=== PATIENT | male | born 1950 | race Caucasian/White ===

== ENCOUNTER 2018-07-08 03:56 | Inpatient (IN) ==
[2018-07-08] MEDS ORDERED: methylPREDNISolone 125 MG/2 ML VIAL IVP ONE (04:12)
[2018-07-08] MEDS ORDERED: Ipratropium/Albuterol Neb 3 ML IH ONE (04:12)
[2018-07-08] MEDS: Ipratropium/Albuterol Neb 3 ML ONE ×3 (04:13→04:15)
--- NOTE | 2018-07-08 04:32 | Emergency Department Note ---
Disposition Clinical Impression: Acute exacerbation of chronic obstructive airways disease Disposition: Admitted As Inpatient Condition: Fair Forms: ED Satisfaction Letter Time of Disposition: 07:32 SOB HPI - General Chief Complaint: ED Shortness of Breath/Dyspnea Stated Complaint: Ailyn Time Seen by Provider: 07/08/18 04:12 Source: patient, EMS Limitations: no limitations Nursing Notes Reviewed: Yes Vital Signs Reviewed: Yes - History of Present Illness 68-year-old male presents from home via EMS for evaluation of breath. Onset late this morning and progressive. On EMS arrival to the patient's house, he was saturating in the low 80s on his baseline 3 L nasal cannula. Improved after albuterol nebs and 4 L nasal cannula to the low 90s. Patient has a history of COPD on 3 L nasal cannula continuous. History of anxiety. He states the shortness of breath began abruptly late this morning. His been progressive since. ROS: Positive: As above Negative: Traci, chills, nausea, vomiting, cough, chest pains, palpitations, diaphoresis, abdominal pain, change in bowel or bladder habits. - Related Data Allergies Allergy/AdvReac Type Severity Reaction Status Date / Time furosemide [From Lasix] Allergy See Verified 07/08/18 04:05 Comments All systems ED: reviewed and negative except as stated. Review of Systems: As Per HPI Past Medical History - Past Medical History Medical history: Reports: COPD - Social History Smoking Status: Current every day smoker Smokeless Tobacco Status: No Alcohol use: Reports: none Drug use: Reports: none Physical Exam Vital Signs Reviewed General: Patient is alert, oriented, anxious appearing, one word conversational dyspnea. In respiratory distress with accessory muscle usage breathing through pursed lips. Head: atraumatic, normocephalic Eye: normal appearance, PERRL, EOMI, no scleral icterus, no conjunctival injection ENT: mucous membranes moist, normal external ear exam Neck: normal inspection, trachea midline, full ROM Chest: normal inspection, symmetric chest rise Respiratory: Poor respiratory effort. Bilateral breath sounds are equal with global wheeze. Cardiovascular: Regular rate and rhythm. No clicks, rubs, gallops, or murmors. Normal heart sounds. Abdomen: Bowel sounds present normoactive. Abdomen is soft, nondistended, and nontender. No guarding or rebound. Musculoskeletal: Spontaneously moving all extremities. Skin: warm, dry, intact. Neuro: GCS 15. No focal neurologic deficits observed. Psych: Patient's affect is appropriate for situation. - General Limitations: no limitations General appearance: alert, in no apparent distress Course Course Narrative: Patient placed on BiPAP with nebulizers. Clinical concern for acute exacerbation of COPD versus bronchitis versus pneumonia versus cardiac etiology. EKG dated 07/08/2018 at 04:0 interpreted as sinus tachycardia with a rate of 102. MN 144, QRS 87, QTC 4:30. Normal axis. Nonspecific ST-T changes. Rare PVC. No previous EKG for comparison. Chest x-ray concerning for emphysema; confirming acute exacerbation of COPD. Serum hematology and serum chemistries are unremarkable. Patient is symptomatically improving on BiPAP. DuoNeb was provided. IV steroids provided. I discussed the above with the admitting hospitalist, Dr. Issa, who agrees to the patient for continued evaluation monitoring for acute exacerbation of COPD. Chest X-Ray 07/08/18 04:12 IMPRESSION: Emphysema with no acute airspace disease. D/ / Elliot Dumas MD / Elliot Dumas MD Interpreting Provider: Elliot Dumas MD Vital Signs Temperature 98.0 F 07/08/18 03:58 Pulse Rate 106 07/08/18 03:58 Respiratory Rate 26 07/08/18 03:58 Blood Pressure 200/105 07/08/18 03:58 O2 Sat by Pulse Oximetry 94 07/08/18 03:58 Temperature 98.0 F 07/08/18 03:58 Pulse Rate 89 07/08/18 07:22 Respiratory Rate 22 07/08/18 06:26 Blood Pressure 138/82 07/08/18 07:22 O2 Sat by Pulse Oximetry 99 07/08/18 07:22 Oxygen Delivery Oxygen Delivery Bipap Shortness of Breath/Dyspnea - Lab Data Result diagrams: 07/08/18 05:03 07/08/18 05:03 Lab Results 07/08/18 07/08/18 07/08/18 Range/Units 05:03 05:03 05:03 WBC 11.6 H (4.3-11.1) K/mcL RBC 4.62 (4.19-5.50) M/mcL Hgb 13.3 (12.9-16.9) g/dL Hct 41.5 (37.5-50.1) % MCV 89.8 (83.0-100.0) fL MCH 28.8 (28.0-33.3) pg MCHC 32.0 (31.6-35.5) g/dL RDW 14.2 (11.5-14.5) % Plt Count 380 (140-400) K/mcL MPV 8.4 L (9.4-12.4) fL Immature Gran % 0.3 (0-4) % Seg Neutrophils % 47.0 % Lymphocytes % 33.2 % Monocytes % 13.2 % Eosinophils % 5.3 % Basophils % 1.0 % Neutrophils # 5.5 (1.6-8.9) K/mcL Lymphocytes # 3.9 (0.6-4.6) K/mcL Monocytes # 1.5 H (0.0-1.3) K/mcL Eosinophils # 0.6 (0.0-0.6) K/mcL Basophils # 0.1 (0.0-0.2) K/mcL Sodium 137 (136-145) mEq/L Potassium 3.9 (3.5-5.1) mEq/L Chloride 101 (98-107) mEq/L Carbon Dioxide 29 (23-29) mEq/L BUN 15 (8-23) mg/dL Creatinine 0.74 (0.70-1.30) mg/dL Est GFR ( Amer) > 60 (> 60) Est GFR (Non-Af Amer) > 60 (> 60) BUN/Creatinine Ratio 20 (6-26) Glucose 118 H (70-105) mg/dL Calculated Osmolality 286 (280-300) Lactic Acid 0.8 (0.5-2.2) mmol/L Calcium 9.9 (8.6-10.3) mg/dL Troponin I < 0.03 (< 0.04) ng/mL B-Natriuretic Peptide (Less than 100) pg/mL 07/08/18 Range/Units 05:03 WBC (4.3-11.1) K/mcL RBC (4.19-5.50) M/mcL Hgb (12.9-16.9) g/dL Hct (37.5-50.1) % MCV (83.0-100.0) fL MCH (28.0-33.3) pg MCHC (31.6-35.5) g/dL RDW (11.5-14.5) % Plt Count (140-400) K/mcL MPV (9.4-12.4) fL Immature Gran % (0-4) % Seg Neutrophils % % Lymphocytes % % Monocytes % % Eosinophils % % Basophils % % Neutrophils # (1.6-8.9) K/mcL Lymphocytes # (0.6-4.6) K/mcL Monocytes # (0.0-1.3) K/mcL Eosinophils # (0.0-0.6) K/mcL Basophils # (0.0-0.2) K/mcL Sodium (136-145) mEq/L Potassium (3.5-5.1) mEq/L Chloride (98-107) mEq/L Carbon Dioxide (23-29) mEq/L BUN (8-23) mg/dL Creatinine (0.70-1.30) mg/dL Est GFR ( Amer) (> 60) Est GFR (Non-Af Amer) (> 60) BUN/Creatinine Ratio (6-26) Glucose (70-105) mg/dL Calculated Osmolality (280-300) Lactic Acid (0.5-2.2) mmol/L Calcium (8.6-10.3) mg/dL Troponin I (< 0.04) ng/mL B-Natriuretic Peptide 22 (Less than 100) pg/mL
[2018-07-08] MEDS ORDERED: Acetaminophen 325 MG TABLET PO ONE (04:33)
[2018-07-08 05:24] LABS: Basophils # 0.1 K/mcL (0.0-0.2); Eosinophils # 0.6 K/mcL (0.0-0.6); Eosinophils % 5.3 %; Hematocrit 41.5 % (37.5-50.1); Hemoglobin 13.3 g/dL (12.9-16.9); Immature Granulocytes % 0.3 % (0-4); Lymphocytes # 3.9 K/mcL (0.6-4.6); Lymphocytes % 33.2 %; Mean Corpuscular Hemoglobin 28.8 pg (28.0-33.3); Mean Corpuscular Volume 89.8 fL (83.0-100.0); Mean Platelet Volume 8.4 fL (9.4-12.4); Monocytes # 1.5 K/mcL (0.0-1.3); Monocytes % 13.2 %; Neutrophils # 5.5 K/mcL (1.6-8.9); Platelet Count 380 K/mcL (140-400); Red Blood Count 4.62 M/mcL (4.19-5.50); Red Cell Distribution Width 14.2 % (11.5-14.5)
[2018-07-08 05:44] LABS: BUN/Creatinine Ratio 20 (6-26); Blood Urea Nitrogen 15 mg/dL (8-23); Calcium 9.9 mg/dL (8.6-10.3); Carbon Dioxide 29 mEq/L (23-29); Chloride 101 mEq/L (98-107); Glucose 118 mg/dL (70-105); Osmolality,Calculated 286 (280-300); Potassium 3.9 mEq/L (3.5-5.1); Sodium 137 mEq/L (136-145); eGFR For Non-African Americans > 60 (> 60)
[2018-07-08 05:45] LABS: Troponin I < 0.03 ng/mL (< 0.04)
--- NOTE | 2018-07-08 08:08 | Emergency Department Note ---
Disposition Clinical Impression: Acute exacerbation of chronic obstructive airways disease Disposition: Admitted As Inpatient Condition: Fair [facility]errals: [facility] [Primary Care Provider[facility] - Forms: ED Satisfaction Letter General Adult HPI - General Chief complaint: ED Shortness of Breath/Dyspnea Stated complaint: Ailyn Time Seen by Provider: 07/08/18 04:12 Source: patient, EMS Limitations: no limitations Nursing Notes Reviewed: Yes Vital Signs Reviewed: Yes - History of Present Illness Pain Scale: 0 - Related Data Allergies Allergy/AdvReac Type Severity Reaction Status Date / Time furosemide [From Lasix] Allergy See Verified 07/08/18 04:05 Comments Past Medical History - Past Medical History Medical history: Reports: COPD - Social History Smoking Status: Current every day smoker Smokeless Tobacco Status: No Alcohol use: Reports: none Drug use: Reports: none Physical Exam - General Limitations: no limitations General appearance: alert, in no apparent distress Course Vital Signs Temperature 98.0 F 07/08/18 03:58 Pulse Rate 106 07/08/18 03:58 Respiratory Rate 26 07/08/18 03:58 Blood Pressure 200/105 07/08/18 03:58 O2 Sat by Pulse Oximetry 94 07/08/18 03:58 Temperature 98.0 F 07/08/18 03:58 Pulse Rate 89 07/08/18 07:22 Respiratory Rate 22 07/08/18 06:26 Blood Pressure 138/82 07/08/18 07:22 O2 Sat by Pulse Oximetry 99 07/08/18 07:22 Oxygen Delivery Oxygen Delivery Bipap Medical Decision Making - Medical Records Medical records reviewed: Yes I reviewed the patient's medical records. - Lab Data Lab results reviewed: Yes I reviewed the patient's lab results. Result diagrams: 07/08/18 05:03 07/08/18 05:03 Lab Results 07/08/18 07/08/18 07/08/18 Range/Units 05:03 05:03 05:03 WBC 11.6 H (4.3-11.1) K/mcL RBC 4.62 (4.19-5.50) M/mcL Hgb 13.3 (12.9-16.9) g/dL Hct 41.5 (37.5-50.1) % MCV 89.8 (83.0-100.0) fL MCH 28.8 (28.0-33.3) pg MCHC 32.0 (31.6-35.5) g/dL RDW 14.2 (11.5-14.5) % Plt Count 380 (140-400) K/mcL MPV 8.4 L (9.4-12.4) fL Immature Gran % 0.3 (0-4) % Seg Neutrophils % 47.0 % Lymphocytes % 33.2 % Monocytes % 13.2 % Eosinophils % 5.3 % Basophils % 1.0 % Neutrophils # 5.5 (1.6-8.9) K/mcL Lymphocytes # 3.9 (0.6-4.6) K/mcL Monocytes # 1.5 H (0.0-1.3) K/mcL Eosinophils # 0.6 (0.0-0.6) K/mcL Basophils # 0.1 (0.0-0.2) K/mcL Sodium 137 (136-145) mEq/L Potassium 3.9 (3.5-5.1) mEq/L Chloride 101 (98-107) mEq/L Carbon Dioxide 29 (23-29) mEq/L BUN 15 (8-23) mg/dL Creatinine 0.74 (0.70-1.30) mg/dL Est GFR ( Amer) > 60 (> 60) Est GFR (Non-Af Amer) > 60 (> 60) BUN/Creatinine Ratio 20 (6-26) Glucose 118 H (70-105) mg/dL Calculated Osmolality 286 (280-300) Lactic Acid 0.8 (0.5-2.2) mmol/L Calcium 9.9 (8.6-10.3) mg/dL Troponin I < 0.03 (< 0.04) ng/mL B-Natriuretic Peptide (Less than 100) pg/mL 07/08/18 Range/Units 05:03 WBC (4.3-11.1) K/mcL RBC (4.19-5.50) M/mcL Hgb (12.9-16.9) g/dL Hct (37.5-50.1) % MCV (83.0-100.0) fL MCH (28.0-33.3) pg MCHC (31.6-35.5) g/dL RDW (11.5-14.5) % Plt Count (140-400) K/mcL MPV (9.4-12.4) fL Immature Gran % (0-4) % Seg Neutrophils % % Lymphocytes % % Monocytes % % Eosinophils % % Basophils % % Neutrophils # (1.6-8.9) K/mcL Lymphocytes # (0.6-4.6) K/mcL Monocytes # (0.0-1.3) K/mcL Eosinophils # (0.0-0.6) K/mcL Basophils # (0.0-0.2) K/mcL Sodium (136-145) mEq/L Potassium (3.5-5.1) mEq/L Chloride (98-107) mEq/L Carbon Dioxide (23-29) mEq/L BUN (8-23) mg/dL Creatinine (0.70-1.30) mg/dL Est GFR ( Amer) (> 60) Est GFR (Non-Af Amer) (> 60) BUN/Creatinine Ratio (6-26) Glucose (70-105) mg/dL Calculated Osmolality (280-300) Lactic Acid (0.5-2.2) mmol/L Calcium (8.6-10.3) mg/dL Troponin I (< 0.04) ng/mL B-Natriuretic Peptide 22 (Less than 100) pg/mL - Radiology Data Radiology results reviewed: Yes I reviewed the patient's radiology results. Chest X-Ray 07/08/18 04:12 IMPRESSION: Emphysema with no acute airspace disease. D/ / Elliot Dumas MD / Elliot Dumas MD Interpreting Provider: Elliot Dumas MD Critical Care Time Critical Care Time: Yes Total Critical Care Time: 40 Attestation: Critical care performed: Time is exclusive of separately billable procedures. Time includes: direct patient care, patient reassessment, coordination of patient care, interpretation of data (laboratory data, radiology data, and respiratory data), review of patient's medical records, medical consultation and documentation of patient care. Procedures included in critical care time: Procedures excluded from critical care time: Attestation Statement - Attestation Attestation: IWander MD, personally evaluated this patient and discussed their management with the resident physician. I reviewed the resident's note and agree with the documented findings, medical decision making, and plan of care. 68-year-old male with history of COPD who is on home oxygen at 3 L presents to the emergency department by EMS with a complaint of increased shortness of breath since yesterday morning. It got progressively worse throughout the day and night. No fever. No chest pain. On examination patient is a well-developed well-nourished male in moderate respiratory distress. He is alert and oriented 3. There is no cyanosis or diaphoresis. Breath sounds are markedly decreased bilaterally with diffuse tight bilateral expiratory wheezes. Heart regular rate and rhythm. Abdomen soft and nontender with normal bowel sounds. Labs reviewed. Chest x-ray showed COPD with no acute infiltrate. Patient placed on BiPAP. The hospitalist, Dr. Issa, was consulted and accepted admission of the patient.
[2018-07-08] MEDS ORDERED: Ipratropium/Albuterol Neb 3 ML ONE (10:31)
[2018-07-08] MEDS: Ipratropium/Albuterol Neb 3 ML IH SCH ×5 (10:58→23:34)
[2018-07-08] MEDS ORDERED: Ipratropium/Albuterol Neb 3 ML IH SCH (12:00)
[2018-07-08] MEDS ORDERED: Naloxone 0.4 MG/ML INJ IVP PRN (15:24)
[2018-07-08] MEDS ORDERED: Ibuprofen 200 MG TABLET PO PRN (15:42)
[2018-07-08] MEDS ORDERED: NON-FORMULARY MEDICATION 1 EACH EACH (Alendronate Sodium [Alendronate Sodium] 70 MG) PO SCH (15:45)
[2018-07-08] MEDS: Budesonide/Formoterol 160/4.5 1 PUFF INH IH SCH ×2 (15:57→20:04)
--- NOTE | 2018-07-08 16:34 | Electrocardiograph Report ---
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
[2018-07-08] MEDS: *HR* Heparin 5,000 UNIT/ML VIAL SQ SCH (17:54)
[2018-07-08] MEDS: MethylPREDNISolone 40 MG/ML VIAL IVP SCH ×2 (17:55→23:38)
[2018-07-08] MEDS: Folic Acid 1 MG TABLET PO SCH (17:55)
[2018-07-08] MEDS: Azithromycin 500 MG in D5% in Water 250 ML IVPB SCH (17:55)
[2018-07-08] MEDS: Magnesium Oxide 400 MG TABLET PO SCH (20:22)
[2018-07-08] MEDS: Artificial Tears SOLN 15 ML BOTTLE BOTH EYES SCH (20:23)
--- NOTE | 2018-07-08 23:24 | Internal Med History&Physical ---
Date of Encounter: 07/08/18 Time of Encounter: 19:00 Internal Medicine - H&P: HPI Admitted From: Home Plans for Post Hospital Care: Home History of present illness: The patient is a 68-year-old male. He has had underlying oxygen dependent COPD; he uses 3 L/min nasal cannula oxygen and BiPAP at nights.. He smokes cigarettes every single day. It was today morning around 1:30 AM when he developed severe resting dyspnea with some coughing and a lot of wheezing. He felt pretty good yesterday. Nothing indicated her, that he would have trouble soon. He is feeling better, after getting treatments in the emergency department. They included BiPAP/oxygen to cover her with IV Solu-Medrol and nebulizer treatments with DuoNeb. PAST MEDICAL HX: Oxygen dependent COPD. Hypertension and GERD. PAST FAMILY HX: See below.. PAST SOCIAL HX: See below.. REVIEW OF SYSTEMS: All 14 organ systems were reviewed by me with the patient. Positive and p ertinent negative findings are listed above. The rest of organ systems is negative. PHYSICAL EXAM: Skin: Free of rash and discoloration. Eyes: Sclera is white. There is no discharge from eyes. ENMT: Oral/pharyngeal mucosa is normal in appearance. There is no discharge from nose or ears. Respiratory: Normal breath sounds with no crackles and wheezes bilaterally. CV: Heart is regular with no gallop or murmur. GI: Abdomen is flat and soft with no palpable mass or visceromegaly. : There is no tenderness in patient's flanks bilaterally. Neuro exam: He has good strength in upper and lower extremities. He has normal eye movements. Psychiatric: He has normal affect. His thought process is appropriate to the situation. ADDITIONAL DATA: Chest x-ray shows emphysema. CBC shows hemoglobin of 13.3 with WBC of 11.0 thousand and normal platelet count. Electrolytes are normal. Creatinine is 0.74. Random glucose is 118. He has normal troponin and BNP. A/P: COPD exacerbation/acute on chronic respiratory failure with hypoxia. xxx. The patient was advised to quit using tobacco. I will treat him with IV Zithromax, IV Solu-Medrol and nebulizer treatments with DuoNeb. He will get BiPAP treatments at night. Hypertension. Under control. To continue amlodipine. GERD. Controlled. To continue omeprazole. Disposition: I anticipate his discharge in a couple days. Past Med Surg Social Fam HX - Past Medical History Medical history: COPD Psychiatric history: no psych history - Past Surgical History Surgical History: no surgical history - Social History Smoking Status: Former smoker Smokeless Tobacco Status: No Alcohol use: none Drug use: none - Family History Mother Living Status: Hx Family Cardiac Disorders: Yes Father Living Status: Hx Family Cancer: Yes Internal Medicine - H&P: Meds Acetaminophen [Pain Relief] 1,000 mg PO TID PRN 07/08/18 [History] Alendronate Sodium 70 mg PO TH 07/08/18 [History] Budesonide/Formoterol 160/4.5 [Symbicort] 2 puff IH Q12H 07/08/18 [History] Calcium Carbonate/Vitamin D3 [Calcium 500 + Vit D Caplet] 1 tab PO DAILY 07/08/18 [History] Carboxymethylcellulose Sodium [Sterile Lubricant] 1 drop BOTH EYES TID 07/08/18 [History] Fluticasone Propionate Nasal [Flonase] 1 spray NS DAILY 07/08/18 [History] Folic Acid 1 mg PO Q48H 07/08/18 [History] Ibuprofen [Ibu-200] 400 mg PO TID PRN 07/08/18 [History] Ipratropium/Albuterol Sulfate [Iprat-Albut 0.5-3(2.5) mg/3 ml] 3 ml IH Q4-6H PRN 07/08/18 [History] Levalbuterol [Xopenex] 2 puff IH Q6H PRN 07/08/18 [History] Magnesium Oxide [Magnesium] 400 mg PO BID 07/08/18 [History] Pantoprazole Sodium [Protonix] 40 mg PO DAILY 07/08/18 [History] Roflumilast [Daliresp] 500 mcg PO DAILY 07/08/18 [History] Sodium Chloride 1,000 mg PO TID 07/08/18 [History] Thiamine (B-1) [Vitamin B-1] 100 mg PO DAILY 07/08/18 [History] amLODIPine [Norvasc] 5 mg PO DAILY 07/08/18 [History] guaiFENesin [Guaifenesin] 400 mg PO Q12H PRN 07/08/18 [History] hydrOXYzine HCl [Hydroxyzine HCl] 25 mg PO BID 07/08/18 [History] predniSONE [PredniSONE] 5 mg PO DAILY 07/08/18 [History] Allergy/AdvReac Type Severity Reaction Status Date / Time furosemide [From Lasix] Allergy See Verified 07/08/18 10:00 Comments - Constitutional Vitals: Temp Pulse Resp BP Pulse Ox 97.7 F 89 17 123/80 97 07/08/18 23:06 07/08/18 23:06 07/08/18 23:06 07/08/18 23:06 07/08/18 23:06 General appearance: Present: A&O X 3, no acute distress, answers questions appropriately Exam: xx Internal Med - H&P Results - Labs CBC & Chem 7: 07/08/18 05:03 07/08/18 05:03 Labs: Short CBC 07/08/18 Range/Units 05:03 WBC 11.6 H (4.3-11.1) K/mcL Hgb 13.3 (12.9-16.9) g/dL Hct 41.5 (37.5-50.1) % Plt Count 380 (140-400) K/mcL Neutrophils # 5.5 (1.6-8.9) K/mcL BMP 07/08/18 05:03 Sodium 137 Potassium 3.9 Chloride 101 Carbon Dioxide 29 BUN 15 Creatinine 0.74 Glucose 118 H Calcium 9.9 Cardiac Enzymes 07/08/18 Range/Units 05:03 Troponin I < 0.03 (< 0.04) ng/mL - Impressions ITS Impressions Chest X-Ray 07/08/18 04:12 IMPRESSION: Emphysema with no acute airspace disease. D/ / Elliot Dumas MD / Elliot Dumas MD Interpreting Provider: Elliot Dumas MD - Assessment and plan (1) Acute exacerbation of chronic obstructive airways disease Current Visit: Yes Status: Acute (2) Acute on chronic respiratory failure with hypoxia Current Visit: Yes Status: Acute (3) HTN (hypertension) Current Visit: Yes Status: Chronic Qualifiers: Hypertension type: essential hypertension Qualified Code(s): I10 - [place] l (primary) hypertension (4) GERD (gastroesophageal reflux disease) Current Visit: Yes Status: Chronic Qualifiers: Esophagitis presence: esophagitis presence not specified Qualified Code(s): K21.9 - Gastro-esophageal reflux disease without esophagitis - Time Spent With Patient Total time spent is greater than 50% in coordination of care (as documented) at patient's floor/unit and/or counseling patient: 25 - 35 minutes - VTE Reasons for not Prescribing Prophylaxis: Treatment not Indicated - Low risk for VTE Deep Vein Thrombosis/Pulmonary Embolism Present on Admission: No
[2018-07-09] MEDS: Ipratropium/Albuterol Neb 3 ML IH SCH ×5 (04:45→20:29)
[2018-07-09] MEDS: *HR* Heparin 5,000 UNIT/ML VIAL SQ SCH ×2 (05:34→17:12)
[2018-07-09] MEDS: Budesonide/Formoterol 160/4.5 1 PUFF INH IH SCH ×2 (07:12→20:29)
[2018-07-09] MEDS: amLODIPine 5 MG TABLET PO SCH (09:51)
[2018-07-09] MEDS: Thiamine (B-1) 100 MG TABLET PO SCH (09:51)
[2018-07-09] MEDS: Magnesium Oxide 400 MG TABLET PO SCH ×2 (09:51→20:13)
[2018-07-09] MEDS: GuaiFENesin Liq 200 MG/10 ML UDC PO PRN ×2 (09:51→23:57)
[2018-07-09] MEDS: MethylPREDNISolone 40 MG/ML VIAL IVP SCH ×3 (09:52→23:54)
[2018-07-09] MEDS: Artificial Tears SOLN 15 ML BOTTLE BOTH EYES SCH ×3 (09:53→20:14)
--- NOTE | 2018-07-09 16:27 | Internal Med Progress Note ---
Hospitalist Progress Note - Encounter Date of Encounter: 07/09/18 Time of Encounter: 16:24 - Subjective Interval History: Pt reported cough and sob, currently using BIPAP. - Exam Vitals: Temp Pulse Resp BP Pulse Ox 97.5 F L 112 17 150/86 97 07/09/18 12:32 07/09/18 12:32 07/09/18 15:15 07/09/18 12:32 07/09/18 15:15 Exam: PHYSICAL EXAMINATION: GENERAL APPEARANCE: The patient is alert, oriented and in no acute distress. HEENT: Head is normocephalic. The sinuses are nontender. Pupils are equal and reactive. The nares are patent. Oropharynx clear without lesions. NECK: Supple without lymphadenopathy. HEART: Regular rate and rhythm. LUNGS: bilateral crackles or wheezes are heard. ABDOMEN: Soft, nontender, nondistended with good bowel sounds heard. Inguinal area is normal. EXTREMITIES: Without cyanosis, clubbing or edema. NEUROLOGICAL: Gross nonfocal. SKIN: Warm and dry without any rash. - Assessment and Plan (1) Acute exacerbation of chronic obstructive airways disease Current Visit: Yes Status: Acute Assessment and Plan: Symptoms consistent with COPD exacerbation. continue home meds, continue duoneb as needed and scheduled. IV steroid. IV Azithromycin for acute bronchitis. BiPAP as needed. (2) Acute on chronic respiratory failure with hypoxia Current Visit: Yes Status: Acute Assessment and Plan: same as above. (3) HTN (hypertension) Current Visit: No Status: Chronic Assessment and Plan: BP controlled, continue home meds. (4) GERD (gastroesophageal reflux disease) Current Visit: No Status: Chronic Assessment and Plan: continue home meds. DVT Prophylaxis: Heparin sq. - Time Spent with Patient Total time spent is greater than 50% in coordination of care (as documented) at patient's floor/unit and/or counseling patient: Greater than 35 minutes Plan of Care Discussed with: patient Internal Medicine: Result - Labs CBC & Chem 7: 07/08/18 05:03 07/08/18 05:03 - VTE Reasons for not Prescribing Prophylaxis: Treatment not Indicated - Low risk for VTE Deep Vein Thrombosis/Pulmonary Embolism Present on Admission: No Consult Discharge Plan - Plan [facility]errals: [facility] [Primary Care Provider] - (3) HTN (hypertension) Qualifiers: Hypertension type: essential hypertension Qualified Code(s): I10 - Essential (primary) hypertension (4) GERD (gastroesophageal reflux disease) Qualifiers: Esophagitis presence: esophagitis presence not specified Qualified Code(s): K21.9 - Gastro-esophageal reflux disease without esophagitis
[2018-07-09] MEDS: Azithromycin 500 MG in D5% in Water 250 ML IVPB SCH (17:13)
[2018-07-10] MEDS: Ipratropium/Albuterol Neb 3 ML IH SCH ×6 (00:13→19:52)
[2018-07-10] MEDS: *HR* Heparin 5,000 UNIT/ML VIAL SQ SCH ×2 (06:01→17:33)
[2018-07-10 06:03] LABS: Hematocrit 35.7 % (37.5-50.1); Mean Corpuscular HGB Conc 31.9 g/dL (31.6-35.5); Mean Corpuscular Hemoglobin 28.4 pg (28.0-33.3); Mean Platelet Volume 8.7 fL (9.4-12.4); Platelet Count 322 K/mcL (140-400); Red Blood Count 4.01 M/mcL (4.19-5.50); Red Cell Distribution Width 14.4 % (11.5-14.5)
[2018-07-10 06:04] LABS: Hemoglobin 11.4 g/dL (12.9-16.9)
[2018-07-10 06:21] LABS: BUN/Creatinine Ratio 43 (6-26); Blood Urea Nitrogen 31 mg/dL (8-23); Calcium 9.4 mg/dL (8.6-10.3); Carbon Dioxide 30 mEq/L (23-29); Chloride 103 mEq/L (98-107); Glucose 141 mg/dL (70-105); Osmolality,Calculated 295 (280-300); Potassium 4.5 mEq/L (3.5-5.1); Sodium 138 mEq/L (136-145); eGFR For Non-African Americans > 60 (> 60)
[2018-07-10] MEDS: Budesonide/Formoterol 160/4.5 1 PUFF INH IH SCH ×2 (07:24→19:52)
[2018-07-10] MEDS: MethylPREDNISolone 40 MG/ML VIAL IVP SCH ×2 (08:44→15:10)
[2018-07-10] MEDS: Artificial Tears SOLN 15 ML BOTTLE BOTH EYES SCH ×3 (08:44→21:20)
[2018-07-10] MEDS: amLODIPine 5 MG TABLET PO SCH (08:45)
[2018-07-10] MEDS: Fluticasone Propionate Nasal 50 MCG/SPRAY BOTTLE NS SCH (08:45)
[2018-07-10] MEDS: Magnesium Oxide 400 MG TABLET PO SCH ×2 (08:45→21:20)
[2018-07-10] MEDS: Thiamine (B-1) 100 MG TABLET PO SCH (08:45)
[2018-07-10] MEDS: Cholecalciferol (D-3) 1,000 UNIT TABLET PO SCH (08:45)
[2018-07-10] MEDS ORDERED: NON-FORMULARY MEDICATION 1 EACH EACH (Calcium Carbonate/Vitamin D3 [Calcium 500 + Vit D Ca PO SCH (09:00)
--- NOTE | 2018-07-10 13:14 | Internal Med Progress Note ---
Hospitalist Progress Note - Encounter Date of Encounter: 07/10/18 Time of Encounter: 13:14 - Subjective Interval History: Patient sitting in bed eating breakfast. He reported improved breathing and less cough overnight. - Exam Vitals: Temp Pulse Resp BP Pulse Ox 97.5 F L 86 24 126/66 98 07/10/18 11:25 07/10/18 11:25 07/10/18 11:47 07/10/18 11:25 07/10/18 11:47 Exam: PHYSICAL EXAMINATION: GENERAL APPEARANCE: The patient is alert, oriented and in no acute distress. HEENT: Head is normocephalic. The sinuses are nontender. Pupils are equal and reactive. The nares are patent. Oropharynx clear without lesions. NECK: Supple without lymphadenopathy. HEART: Regular rate and rhythm. LUNGS: bilateral crackles or wheezes are heard. ABDOMEN: Soft, nontender, nondistended with good bowel sounds heard. Inguinal area is normal. EXTREMITIES: Without cyanosis, clubbing or edema. NEUROLOGICAL: Gross nonfocal. SKIN: Warm and dry without any rash. - Assessment and Plan (1) Acute exacerbation of chronic obstructive airways disease Current Visit: Yes Status: Acute Assessment and Plan: 1/4 Symptoms consistent with COPD exacerbation. continue home meds, continue duoneb as needed and scheduled. IV steroid. IV Azithromycin for acute bronchitis. BiPAP as needed. 1/5 Symptoms improved. WBC down to normal. IV abx changed to oral doxycycline. continue current treatment, will taper IV steroid tomorrow. (2) Acute on chronic respiratory failure with hypoxia Current Visit: Yes Status: Acute Assessment and Plan: same as above. (3) HTN (hypertension) Current Visit: No Status: Chronic Assessment and Plan: BP controlled, continue home meds. (4) GERD (gastroesophageal reflux disease) Current Visit: No Status: Chronic Assessment and Plan: continue home meds. DVT Prophylaxis: Heparin sq. - Time Spent with Patient Total time spent is greater than 50% in coordination of care (as documented) at patient's floor/unit and/or counseling patient: Greater than 35 minutes Plan of Care Discussed with: patient Internal Medicine: Result - Labs CBC & Chem 7: 07/10/18 05:10 07/10/18 05:10 Labs: Short CBC 07/10/18 Range/Units 05:10 WBC 7.7 (4.3-11.1) K/mcL Hgb 11.4 L D (12.9-16.9) g/dL Hct 35.7 L (37.5-50.1) % Plt Count 322 (140-400) K/mcL [facility] 07/10/18 05:10 Sodium 138 Potassium 4.5 Chloride 103 Carbon Dioxide 30 H BUN 31 H Creatinine 0.72 Glucose 141 H Calcium 9.4 - VTE Reasons for not Prescribing Prophylaxis: Treatment not Indicated - Low risk for VTE Deep Vein Thrombosis/Pulmonary Embolism Present on Admission: No Consult Discharge Plan - Plan Referrals: [facility] [Primary Care Provider] - (3) HTN (hypertension) Qualifiers: Hypertension type: essential hypertension Qualified Code(s): I10 - Essential (primary) hypertension (4) GERD (gastroesophageal reflux disease) Qualifiers: Esophagitis presence: esophagitis presence not specified Qualified Code(s): K21.9 - Gastro-esophageal reflux disease without esophagitis
[2018-07-10] MEDS: Folic Acid 1 MG TABLET PO SCH (15:10)
[2018-07-10] MEDS: Doxycycline 100 MG CAPSULE PO SCH (21:20)
[2018-07-11] MEDS: Ipratropium/Albuterol Neb 3 ML IH SCH ×7 (00:07→23:30)
[2018-07-11] MEDS: MethylPREDNISolone 40 MG/ML VIAL IVP SCH ×2 (01:28→08:35)
[2018-07-11] MEDS: *HR* Heparin 5,000 UNIT/ML VIAL SQ SCH ×2 (06:03→16:37)
[2018-07-11 07:23] LABS: Hematocrit 36.6 % (37.5-50.1); Hemoglobin 11.5 g/dL (12.9-16.9); Mean Corpuscular HGB Conc 31.4 g/dL (31.6-35.5); Mean Corpuscular Hemoglobin 28.5 pg (28.0-33.3); Mean Corpuscular Volume 90.6 fL (83.0-100.0); Mean Platelet Volume 8.8 fL (9.4-12.4); Platelet Count 333 K/mcL (140-400); Red Blood Count 4.04 M/mcL (4.19-5.50); Red Cell Distribution Width 14.5 % (11.5-14.5)
[2018-07-11 07:41] LABS: BUN/Creatinine Ratio 49 (6-26); Blood Urea Nitrogen 33 mg/dL (8-23); Calcium 9.3 mg/dL (8.6-10.3); Carbon Dioxide 32 mEq/L (23-29); Chloride 104 mEq/L (98-107); Glucose 130 mg/dL (70-105); Osmolality,Calculated 299 (280-300); Potassium 4.4 mEq/L (3.5-5.1); Sodium 140 mEq/L (136-145); eGFR For Non-African Americans > 60 (> 60)
[2018-07-11] MEDS: Budesonide/Formoterol 160/4.5 1 PUFF INH IH SCH ×2 (07:56→23:30)
[2018-07-11] MEDS: Doxycycline 100 MG CAPSULE PO SCH (08:35)
[2018-07-11] MEDS: amLODIPine 5 MG TABLET PO SCH (08:35)
[2018-07-11] MEDS: Cholecalciferol (D-3) 1,000 UNIT TABLET PO SCH (08:35)
[2018-07-11] MEDS: Thiamine (B-1) 100 MG TABLET PO SCH (08:35)
[2018-07-11] MEDS: Magnesium Oxide 400 MG TABLET PO SCH ×2 (08:35→21:09)
[2018-07-11] MEDS: Fluticasone Propionate Nasal 50 MCG/SPRAY BOTTLE NS SCH (08:37)
[2018-07-11] MEDS: Artificial Tears SOLN 15 ML BOTTLE BOTH EYES SCH ×3 (08:43→21:09)
[2018-07-11] MEDS ORDERED: *HR* LORazepam 2 MG/ML VIAL IVP PRN (15:04)
--- NOTE | 2018-07-11 15:14 | Internal Med Progress Note ---
Hospitalist Progress Note - Encounter Date of Encounter: 07/11/18 Time of Encounter: 15:00 - Exam Vitals: Temp Pulse Resp BP Pulse Ox 98.7 F 86 18 133/69 99 07/11/18 11:50 07/11/18 11:50 07/11/18 11:50 07/11/18 11:50 07/11/18 11:50 Exam: PHYSICAL EXAMINATION: GENERAL APPEARANCE: The patient is alert, oriented and in no acute distress. HEENT: Head is normocephalic. The sinuses are nontender. Pupils are equal and reactive. The nares are patent. Oropharynx clear without lesions. NECK: Supple without lymphadenopathy. HEART: Regular rate and rhythm. LUNGS: bilateral crackles or wheezes are heard. ABDOMEN: Soft, nontender, nondistended with good bowel sounds heard. Inguinal area is normal. EXTREMITIES: Without cyanosis, clubbing or edema. NEUROLOGICAL: Gross nonfocal. SKIN: Warm and dry without any rash. - Assessment and Plan (1) Acute exacerbation of chronic obstructive airways disease Current Visit: Yes Status: Acute Assessment and Plan: Continue nebs steroids and antibiotics with ceftriaxone and azithromycin Taper IV steroids to po. (2) Acute on chronic respiratory failure with hypoxia Current Visit: Yes Status: Acute Assessment and Plan: Continue on nebs steroids and antibiotics (3) HTN (hypertension) Current Visit: No Status: Chronic Assessment and Plan: BP controlled, continue home meds. (4) GERD (gastroesophageal reflux disease) Current Visit: No Status: Chronic Assessment and Plan: continue home meds. DVT Prophylaxis: Heparin sq. - Time Spent with Patient Total time spent is greater than 50% in coordination of care (as documented) at patient's floor/unit and/or counseling patient: Internal Medicine: Result - Labs CBC & Chem 7: 07/11/18 06:19 07/11/18 06:19 Labs: Short CBC 07/11/18 Range/Units 06:19 WBC 7.3 (4.3-11.1) K/mcL Hgb 11.5 L (12.9-16.9) g/dL Hct 36.6 L (37.5-50.1) % Plt Count 333 (140-400) K/mcL BMP 07/11/18 06:19 Sodium 140 Potassium 4.4 Chloride 104 Carbon Dioxide 32 H BUN 33 H Creatinine 0.68 L Glucose 130 H Calcium 9.3 - VTE Reasons for not Prescribing Prophylaxis: Treatment not Indicated - Low risk for VTE Deep Vein Thrombosis/Pulmonary Embolism Present on Admission: No Consult Discharge Plan - Plan [facility]errals: [facility] [Primary Care Provider] - (3) HTN (hypertension) Qualifiers: Hypertension type: essential hypertension Qualified Code(s): I10 - Essential (primary) hypertension (4) GERD (gastroesophageal reflux disease) Qualifiers: Esophagitis presence: esophagitis presence not specified Qualified Code(s): K 21.9 - Gastro-esophageal reflux disease without esophagitis
[2018-07-11] MEDS: cefTRIAXone 1,000 MG in Water for inj. (sterile) 20 ML 10 ML IVP SCH (15:16)
[2018-07-11] MEDS: Azithromycin 500 MG in D5% in Water 250 ML IVPB SCH (15:17)
[2018-07-11] MEDS: *HR* Promethazine 25 MG/ML VIAL IVP PRN (22:58)
[2018-07-12] MEDS: *HR* Promethazine 25 MG/ML VIAL IVP PRN (03:25)
[2018-07-12] MEDS: Ipratropium/Albuterol Neb 3 ML IH SCH ×5 (03:43→19:27)
[2018-07-12] MEDS: *HR* Heparin 5,000 UNIT/ML VIAL SQ SCH ×2 (06:42→17:27)
[2018-07-12] MEDS: Budesonide/Formoterol 160/4.5 1 PUFF INH IH SCH ×2 (07:35→19:27)
[2018-07-12] MEDS: Magnesium Oxide 400 MG TABLET PO SCH ×2 (08:47→20:13)
[2018-07-12] MEDS: amLODIPine 5 MG TABLET PO SCH (08:47)
[2018-07-12] MEDS: Cholecalciferol (D-3) 1,000 UNIT TABLET PO SCH (08:47)
[2018-07-12] MEDS: predniSONE 20 MG TABLET PO SCH (08:47)
[2018-07-12] MEDS: Thiamine (B-1) 100 MG TABLET PO SCH (08:48)
[2018-07-12] MEDS: cefTRIAXone 1,000 MG in Water for inj. (sterile) 20 ML 10 ML IVP SCH (08:48)
[2018-07-12] MEDS: Artificial Tears SOLN 15 ML BOTTLE BOTH EYES SCH ×3 (08:54→20:14)
[2018-07-12] MEDS: Fluticasone Propionate Nasal 50 MCG/SPRAY BOTTLE NS SCH (08:54)
--- NOTE | 2018-07-12 09:11 | Discharge Summary ---
Date of Encounter: 07/12/18 Time of Encounter: 09:00 - Discharge Diagnosis (1) Acute exacerbation of chronic obstructive airways disease Priority: Primary Status: Acute Assessment and Plan: 68-year-old male. He has had underlying oxygen dependent COPD; he uses 3 L/min nasal cannula oxygen and BiPAP at nights.. He smokes cigarettes every single day. He developed severe resting dyspnea with some coughing and a lot of wheezin g about 4 days ago. He was admitted with acute hypoxic respiratory failure secondary to acute COPD exacerbation. He was started on BIPAP, nebs, steroids and antibiotics with azithromycin. He improved on this regimen and IV steroids were tapered to PO. He complains of weakness and an unsteady gait and will require PT evaluation for discharge.He will complete a course of steroids and a z pack as an outpatient. 35 minutes was spent discharging this patient (2) Acute on chronic respiratory failure with hypoxia Priority: Primary Status: Acute Assessment and Plan: Continue on nebs steroids and antibiotics (3) HTN (hypertension) Priority: Primary Status: Chronic Qualifiers: Hypertension type: essential hypertension Qualified Code(s): I10 - Essential (primary) hypertension (4) GERD (gastroesophageal reflux disease) Priority: Primary Status: Chronic Qualifiers: Esophagitis presence: esophagitis presence not specified Qualified Code(s): K21.9 - Gastro-esophageal reflux disease without esophagitis Hospital course: Mr. Martínez is a 68 year old male - Time Spent with Patient Total time spent providing and/or coordinating discharge services: - Discharge Medications Prescriptions: Azithromycin [Azithromycin 6-Tab Pack] 250 mg PO PER PKG DI #6 tab predniSONE [PredniSONE] 40 mg PO DAILY 5 Days #10 tablet Home Medications: Acetaminophen [Pain Relief] 1,000 mg PO TID PRN 07/08/18 [History] Alendronate Sodium 70 mg PO TH 07/08/18 [History] Budesonide/Formoterol 160/4.5 [Symbicort 160/4.5] 2 puff IH Q12H 07/08/18 [His tory] Calcium Carbonate/Vitamin D3 [Calcium 500 + Vit D Caplet] 1 tab PO DAILY 07/08/18 [History] Carboxymethylcellulose Sodium [Sterile Lubricant] 1 drop BOTH EYES TID 07/08/18 [History] Fluticasone Propionate Nasal [Flonase] 1 spray NS DAILY 07/08/18 [History] Folic Acid 1 mg PO Q48H 07/08/18 [History] Ibuprofen [Ibu-200] 400 mg PO TID PRN 07/08/18 [History] Ipratropium/Albuterol Sulfate [Iprat-Albut 0.5-3(2.5) mg/3 ml] 3 ml IH Q4-6H PRN 07/08/18 [History] Levalbuterol [Xopenex INH] 2 puff IH Q6H PRN 07/08/18 [History] Magnesium Oxide [Magnesium] 400 mg PO BID 07/08/18 [History] Pantoprazole Sodium [Protonix] 40 mg PO DAILY 07/08/18 [History] Roflumilast [Daliresp] 500 mcg PO DAILY 07/08/18 [History] Sodium Chloride 1,000 mg PO TID 07/08/18 [History] Thiamine (B-1) [Vitamin B-1] 100 mg PO DAILY 07/08/18 [History] amLODIPine [Norvasc] 5 mg PO DAILY 07/08/18 [History] guaiFENesin [Guaifenesin] 400 mg PO Q12H PRN 07/08/18 [History] hydrOXYzine HCl [Hydroxyzine HCl] 25 mg PO BID 07/08/18 [History] predniSONE [PredniSONE] 5 mg PO DAILY 07/08/18 [History] Azithromycin [Azithromycin 6-Tab Pack] 250 mg PO PER PKG DI #6 tab 07/12/18 [Rx] predniSONE [PredniSONE] 40 mg PO DAILY 5 Days #10 tablet 07/12/18 [Rx] Allergies/Adverse Reactions: Allergy/AdvReac Type Severity Reaction Status Date / Time furosemide [From Lasix] Allergy See Verified 07/08/18 10:00 Comments Date of admission: 07/08/18 15:24 [facility] care physician: [facility] Consults: 07/11/18 18:41 Consult to Physical Therapy [CONS] Routine Comment: Evaluate, develop and implement POC Reason for Consult: weakness Does patient have active BEDREST order?: No Is patient medically & hemodynamically stable?: Yes Patient assessed for mobility or mobilized this visit?: No OT [Consult to Occupational Therapy] [CONS] Routine Comment: Evaluate, develop and implement POC Reason for Consult: weakness Does patient have active BEDREST order?: No Is patient medically & hemodynamically stable?: Yes Patient assessed for mobility or mobilized this visit?: No - Constitutional Vitals: Temp Pulse Resp BP Pulse Ox 98.6 F 107 15 116/66 98 07/12/18 08:10 07/12/18 08:10 07/12/18 08:10 07/12/18 08:10 07/12/18 08:10 General appearance: Present: A&O X 3, no acute distress, answers questions appropriately Exam: PHYSICAL EXAMINATION: GENERAL APPEARANCE: The patient is alert, oriented and in no acute distress. HEENT: Head is normocephalic. The sinuses are nontender. Pupils are equal and reactive. The nares are patent. Oropharynx clear without lesions. NECK: Supple without lymphadenopathy. HEART: Regular rate and rhythm. LUNGS: bilateral crackles or wheezes are heard. ABDOMEN: Soft, nontender, nondistended with good bowel sounds heard. Inguinal area is normal. EXTREMITIES: Without cyanosis, clubbing or edema. NEUROLOGICAL: Gross nonfocal. SKIN: Warm and dry without any rash. - Patient Status Disposition: Home, Self-Care Condition: Good - Discharge Instructions Follow Up With: [facility] [Primary Care Provider] - - VTE Reasons for not Prescribing Prophylaxis: Treatment not Indicated - Low risk for VTE Deep Vein Thrombosis/Pulmonary Embolism Present on Admission: No
[2018-07-12] MEDS: Azithromycin 500 MG in D5% in Water 250 ML IVPB SCH (14:46)
[2018-07-12] MEDS: Folic Acid 1 MG TABLET PO SCH (15:22)
[2018-07-13] MEDS: Ipratropium/Albuterol Neb 3 ML IH SCH ×4 (00:29→10:54)
[2018-07-13] MEDS: *HR* Heparin 5,000 UNIT/ML VIAL SQ SCH (05:26)
[2018-07-13] MEDS: Budesonide/Formoterol 160/4.5 1 PUFF INH IH SCH (07:25)
--- NOTE | 2018-07-13 08:16 | Internal Med Progress Note ---
Hospitalist Progress Note - Encounter Date of Encounter: 07/13/18 Time of Encounter: 08:10 - Exam Vitals: Temp Pulse Resp BP Pulse Ox 97.7 F 55 16 129/74 98 07/13/18 07:33 07/13/18 07:33 07/13/18 07:33 07/13/18 07:33 07/13/18 07:33 Exam: PHYSICAL EXAMINATION: GENERAL APPEARANCE: The patient is alert, oriented and in no acute distress. HEENT: Head is normocephalic. The sinuses are nontender. Pupils are equal and reactive. The nares are patent. Oropharynx clear without lesions. NECK: Supple without lymphadenopathy. HEART: Regular rate and rhythm. LUNGS: bilateral crackles or wheezes are heard. ABDOMEN: Soft, nontender, nondistended with good bowel sounds heard. Inguinal area is normal. EXTREMITIES: Without cyanosis, clubbing or edema. NEUROLOGICAL: Gross nonfocal. SKIN: Warm and dry without any rash. - Assessment and Plan (1) Acute exacerbation of chronic obstructive airways disease Current Visit: Yes Status: Acute Assessment and Plan: 68-year-old male. He has had underlying oxygen dependent COPD; he uses 3 L/min nasal cannula oxygen and BiPAP at nights.. He smokes cigarettes every single day. He developed severe resting dyspnea with some coughing and a lot of wheezing about 4 days ago. He was admitted with acute hypoxic respiratory failure secondary to acute COPD exacerbation. He was started on BIPAP, nebs, steroids and antibiotics with azithromycin. He improved on this regimen and IV steroids were tapered to PO. He complains of weakness and an unsteady gait and will require PT evaluation for discharge.He will complete a course of steroids and a z pack as an outpatient. 35 minutes was spent discharging this patient (2) Acute on chronic respiratory failure with hypoxia Current Visit: Yes Status: Acute Assessment and Plan: Continue on nebs steroids and antibiotics (3) HTN (hypertension) Current Visit: No Status: Chronic Assessment and Plan: BP controlled, continue home meds. (4) GERD (gastroesophageal reflux disease) Current Visit: No Status: Chronic Assessment and Plan: continue home meds. DVT Prophylaxis: Heparin sq. - Time Spent with Patient Total time spent is greater than 50% in coordination of care (as documented) at patient's floor/unit and/or counseling patient: Internal Medicine: Result - Labs CBC & Chem 7: 07/11/18 06:19 07/11/18 06:19 - VTE Reasons for not Prescribing Prophylaxis: Treatment not Indicated - Low risk for VTE Deep Vein Thrombosis/Pulmonary Embolism Present on Admission: No Consult Discharge Plan - Plan Referrals: [facility] [Primary Care Provider] - Prescriptions: Azithromycin [Azithromycin 6-Tab Pack] 250 mg PO PER PKG DI #6 tab predniSONE [PredniSONE] 40 mg PO DAILY 5 Days #10 tablet ____ (3) HTN (hypertension) Qualifiers: Hypertension type: essential hypertension Qualified Code(s): I10 - Essential (primary) hypertension (4) GERD (gastroesophageal reflux disease) Qualifiers: Esophagitis presence: esophagitis presence not specified Qualified Code(s): K21.9 - Gastro-esophageal reflux disease without esophagitis
[2018-07-13] MEDS: Artificial Tears SOLN 15 ML BOTTLE BOTH EYES SCH ×2 (09:21→14:51)
[2018-07-13] MEDS: Fluticasone Propionate Nasal 50 MCG/SPRAY BOTTLE NS SCH (09:21)
[2018-07-13] MEDS: Thiamine (B-1) 100 MG TABLET PO SCH (09:22)
[2018-07-13] MEDS: Magnesium Oxide 400 MG TABLET PO SCH (09:22)
[2018-07-13] MEDS: Cholecalciferol (D-3) 1,000 UNIT TABLET PO SCH (09:22)
[2018-07-13] MEDS: predniSONE 20 MG TABLET PO SCH (09:22)
[2018-07-13] MEDS: amLODIPine 5 MG TABLET PO SCH (09:22)
[2018-07-13] MEDS: cefTRIAXone 1,000 MG in Water for inj. (sterile) 20 ML 10 ML IVP SCH (09:23)
[2018-07-13 11:24] VITALS: BP 127/83
--- NOTE | 2018-07-13 13:40 | Physician Discharge Referral ---
- Diagnosis (1) Acute exacerbation of chronic obstructive airways disease Priority: Primary Status: Acute (2) Acute on chronic respiratory failure with hypoxia Priority: Primary Status: Acute (3) HTN (hypertension) Priority: Primary Status: Chronic (4) GERD (gastroesophageal reflux disease) Priority: Primary Status: Chronic - Transfer Medications Prescriptions: Azithromycin [Azithromycin 6-Tab Pack] 250 mg PO PER PKG DI #6 tab predniSONE [PredniSONE] 40 mg PO DAILY 5 Days #10 tablet Home Medications: Acetaminophen [Pain Relief] 1,000 mg PO TID PRN 07/08/18 [History] Alendronate Sodium 70 mg PO TH 07/08/18 [History] Budesonide/Formoterol 160/4.5 [Symbicort 160/4.5] 2 puff IH Q12H 07/08/18 [History] Calcium Carbonate/Vitamin D3 [Calcium 500 + Vit D Caplet] 1 tab PO DAILY 07/08/18 [History] Carboxymethylcellulose Sodium [Sterile Lubricant] 1 drop BOTH EYES TID 07/08/18 [History] Fluticasone Propionate Nasal [Flonase] 1 spray NS DAILY 07/08/18 [History] Folic Acid 1 mg PO Q48H 07/08/18 [History] Ibuprofen [Ibu-200] 400 mg PO TID PRN 07/08/18 [History] Ipratropium/Albuterol Sulfate [Iprat-Albut 0.5-3(2.5) mg/3 ml] 3 ml IH Q4-6H PRN 07/08/18 [History] Levalbuterol [Xopenex INH] 2 puff IH Q6H PRN 07/08/18 [History] Magnesium Oxide [Magnesium] 400 mg PO BID 07/08/18 [History] Pantoprazole Sodium [Protonix] 40 mg PO DAILY 07/08/18 [History] Roflumilast [Daliresp] 500 mcg PO DAILY 07/08/18 [History] Sodium Chloride 1,000 mg PO TID 07/08/18 [History] Thiamine (B-1) [Vitamin B-1] 100 mg PO DAILY 07/08/18 [History] amLODIPine [Norvasc] 5 mg PO DAILY 07/08/18 [History] guaiFENesin [Guaifenesin] 400 mg PO Q12H PRN 07/08/18 [History] hydrOXYzine HCl [Hydroxyzine HCl] 25 mg PO BID 07/08/18 [History] predniSONE [PredniSONE] 5 mg PO DAILY 07/08/18 [History] Azithromycin [Azithromycin 6-Tab Pack] 250 mg PO PER PKG DI #6 tab 07/12/18 [Rx] predniSONE [PredniSONE] 40 mg PO DAILY 5 Days #10 tablet 07/12/18 [Rx] Allergies/Adverse Reactions: Allergy/AdvReac Type Severity Reaction Status Date / Time furosemide [From Lasix] Allergy See Verified 07/08/18 10:00 Comments - Respiratory Orders Smoking Cessation: Smoking cessation has been advised. For more information, call the [employer] Quit Line at 6-376-UYIK-NOW. - Mobility Orders Ambulate - Rehabiliation Orders Rehab Orders: Evaluation for Physical Therapy - Diet Orders Cardiac CERTIFICATION: I certify that the transfer of the above named patient to an Extended Care Facility is necessary for the continuing treatment of the diagnosis listed. The above information is true and accurate reflection of patient's current condition. Confidential - Redisclosure prohibited without a patient's written consent.
[2018-07-13] MEDS: Azithromycin 500 MG in D5% in Water 250 ML IVPB SCH (14:51)
== END 2018-07-13 15:37 | disposition home or self-care (01) | DRG 189 ==
LOC: 3BNU 03:56 → EMEROOARM 03:56 → 3BNU 09:00
PROVIDERS: ADMIT Internal Medicine; ATTEND Internal Medicine

== ENCOUNTER 2019-07-29 11:27 | Inpatient (IN) ==
[2019-07-29] MEDS ORDERED: Ipratropium/Albuterol Neb 3 ML IH ONE (11:34)
[2019-07-29] MEDS ORDERED: methylPREDNISolone 125 MG/2 ML VIAL IVP ONE (11:34)
[2019-07-29 12:30] LABS: Basophils % 0.2 %; Eosinophils % 0.1 %; Hematocrit 39.7 % (37.5-50.1); Hemoglobin 13.1 g/dL (12.9-16.9); Immature Granulocytes % 1.7 % (0-4); Lymphocytes # 0.6 K/mcL (0.6-4.6); Lymphocytes % 3.4 %; Mean Corpuscular Hemoglobin 29.4 pg (28.0-33.3); Mean Corpuscular Volume 89.2 fL (83.0-100.0); Mean Platelet Volume 8.7 fL (9.4-12.4); Monocytes # 1.8 K/mcL (0.0-1.3); Monocytes % 9.9 %; Platelet Count 295 K/mcL (140-400); Red Blood Count 4.45 M/mcL (4.19-5.50); Red Cell Distribution Width 13.6 % (11.5-14.5); Segmented Neutrophils % 84.7 %; White Blood Count 17.8 K/mcL (4.3-11.1)
[2019-07-29 12:47] LABS: BUN/Creatinine Ratio 36 (6-26); Blood Urea Nitrogen 26 mg/dL (8-23); Calcium 9.1 mg/dL (8.6-10.3); Carbon Dioxide 30 mEq/L (23-29); Chloride 92 mEq/L (98-107); Glucose 129 mg/dL (70-105); Osmolality,Calculated 278 (280-300); Potassium 4.5 mEq/L (3.5-5.1); Sodium 131 mEq/L (136-145); eGFR For African Americans > 60 (> 60); eGFR For Non-African Americans > 60 (> 60)
[2019-07-29] MEDS ORDERED: Albuterol 2.5 MG/3 ML NEBULIZER IH ONE (12:47)
[2019-07-29 12:48] LABS: Troponin I < 0.03 ng/mL (< 0.04)
[2019-07-29 13:52] LABS: Bilirubin,Urine Small (Negative); Blood,Urine Moderate (Negative); Clarity,Urine Clear (Clear); Color,Urine Yellow (Yellow); Glucose,Urine (UA) Normal (Normal); Ketones,Urine 15 mg/dL (Negative); Leukocyte Esterase,Urine Negative (Negative); Nitrite,Urine Negative (Negative); PH,Urine 5.5 pH Units (5.0-8.0); Protein,Urine 30 mg/dL (Neg-Trace); Specific Gravity,Urine > 1.030 (1.010-1.025); Urobilinogen,Urine Normal (Normal)
[2019-07-29 13:54] LABS: Hyaline Casts,Urine None Seen per lpf (None-Few); WBC,Urine 0-3 per hpf (0-3)
[2019-07-29 14:28] LABS: Bacteria,Urine Moderate per hpf (None-Few); Squamous Epithelial Cell,Urine Few per lpf (None-Few)
[2019-07-29] MEDS ORDERED: Naloxone 0.4 MG/ML INJ IVP PRN (15:05)
[2019-07-29] MEDS ORDERED: Acetaminophen 325 MG TABLET PO PRN (15:06)
[2019-07-29] MEDS ORDERED: GuaiFENesin Liq 200 MG/10 ML UDC PO PRN (15:06)
[2019-07-29] MEDS ORDERED: Levalbuterol 1 PUFF INHALER IH PRN (15:06)
[2019-07-29] MEDS ORDERED: AZITHROMYCIN 500 MG PO SCH (15:15)
[2019-07-29] MEDS ORDERED: Isovue-370 500 ML BOTTLE IVP ONE (15:34)
[2019-07-29] MEDS ORDERED: hydrALAZINE 10 MG TABLET PO PRN (15:34)
[2019-07-29 16:44] LABS: ABG Base Excess 1 mEq/L (-2 to 3); ABG HCO3 29 mEq/L (21-27); ABG Oxygen Saturation 100 % (95-98); ABG PCO2 64 mmHg (35-45); ABG PH 7.27 pH Units (7.32-7.45); ABG PO2 228 mmHg (85-104); ABG TCO2 31 mEq/L (20-26); Blood Gas Pressure Support 14 cm H2O
[2019-07-29] MEDS: Budesonide/Formoterol 160/4.5 1 PUFF INH IH SCH ×2 (16:52→20:02)
[2019-07-29] MEDS: Ipratropium/Albuterol Neb 3 ML IH SCH ×2 (16:52→20:02)
[2019-07-29] MEDS: *HR* Heparin 5,000 UNIT/ML VIAL SQ SCH (18:06)
[2019-07-29 19:30] LABS: Adenovirus Not Detected (Not Detect); Coronavirus 229E Not Detected (Not Detect); Coronavirus HKU1 Not Detected (Not Detect); Coronavirus NL63 Not Detected (Not Detect); Coronavirus OC43 Not Detected (Not Detect); Human Metapneumovirus Not Detected (Not Detect); Human Rhinovirus/Enterovirus Not Detected (Not Detect); Influenza A Subtype 2009 H1 Not Detected (Not Detect)
[2019-07-29 19:31] LABS: Bordetella Pertussis Not Detected (Not Detect); Chlamydophila pneumoniae Not Detected (Not Detect); Influenza B Not Detected (Not Detect); Mycoplasma pneumoniae Not Detected (Not Detect); Parainfluenza Virus 1 Not Detected (Not Detect); Parainfluenza Virus 2 Not Detected (Not Detect); Parainfluenza Virus 3 Not Detected (Not Detect); Parainfluenza Virus 4 Not Detected (Not Detect); Respiratory Syncytial Virus DETECTED (Not Detect)
[2019-07-29] MEDS: Magnesium Oxide 400 MG TABLET PO SCH (20:26)
[2019-07-29] MEDS: Artificial Tears SOLN 15 ML BOTTLE BOTH EYES SCH (20:26)
[2019-07-29] MEDS: Fluticasone Propionate Nasal 50 MCG/SPRAY BOTTLE NS SCH (20:26)
[2019-07-29 20:33] LABS: ABG Base Excess 4 mEq/L (-2 to 3); ABG HCO3 31 mEq/L (21-27); ABG Oxygen Saturation 98 % (95-98); ABG PCO2 54 mmHg (35-45); ABG PH 7.36 pH Units (7.32-7.45); ABG PO2 110 mmHg (85-104); ABG TCO2 32 mEq/L (20-26)
[2019-07-30] MEDS: Ipratropium/Albuterol Neb 3 ML IH SCH ×7 (00:13→23:41)
[2019-07-30] MEDS: MethylPREDNISolone 40 MG/ML VIAL IVP SCH ×3 (00:35→17:43)
[2019-07-30] MEDS ORDERED: *HR* LORazepam 2 MG/ML VIAL IVP ONE (00:36)
[2019-07-30 05:52] LABS: Basophils % 0.2 %; Eosinophils % 0.1 %; Hematocrit 35.5 % (37.5-50.1); Hemoglobin 12.1 g/dL (12.9-16.9); Immature Granulocytes % 1.3 % (0-4); Lymphocytes # 0.6 K/mcL (0.6-4.6); Lymphocytes % 4.6 %; Mean Corpuscular HGB Conc 34.1 g/dL (31.6-35.5); Mean Corpuscular Hemoglobin 29.8 pg (28.0-33.3); Mean Corpuscular Volume 87.4 fL (83.0-100.0); Mean Platelet Volume 9.4 fL (9.4-12.4); Monocytes # 0.8 K/mcL (0.0-1.3); Monocytes % 6.1 %; Neutrophils # 10.8 K/mcL (1.6-8.9); Platelet Count 184 K/mcL (140-400); Red Blood Count 4.06 M/mcL (4.19-5.50); Red Cell Distribution Width 13.8 % (11.5-14.5); Segmented Neutrophils % 87.7 %; White Blood Count 12.3 K/mcL (4.3-11.1)
[2019-07-30 06:04] LABS: BUN/Creatinine Ratio 35 (6-26); Blood Urea Nitrogen 27 mg/dL (8-23); Calcium 8.3 mg/dL (8.6-10.3); Carbon Dioxide 28 mEq/L (23-29); Chloride 96 mEq/L (98-107); Glucose 106 mg/dL (70-105); Magnesium 2.3 mg/dL (1.6-2.6); Osmolality,Calculated 284 (280-300); Phosphorous 2.8 mg/dL (2.7-4.5); Potassium 5.1 mEq/L (3.5-5.1); Sodium 134 mEq/L (136-145); eGFR For African Americans > 60 (> 60); eGFR For Non-African Americans > 60 (> 60)
[2019-07-30] MEDS: *HR* Heparin 5,000 UNIT/ML VIAL SQ SCH ×2 (06:11→17:43)
[2019-07-30] MEDS: Budesonide/Formoterol 160/4.5 1 PUFF INH IH SCH ×2 (07:19→19:50)
[2019-07-30] MEDS ORDERED: Ipratropium/Albuterol Neb 3 ML IH PRN (08:03)
[2019-07-30] MEDS: Magnesium Oxide 400 MG TABLET PO SCH ×2 (08:35→20:43)
[2019-07-30] MEDS: amLODIPine 5 MG TABLET PO SCH (08:35)
[2019-07-30] MEDS: Thiamine (B-1) 100 MG TABLET PO SCH (08:35)
[2019-07-30] MEDS: Folic Acid 1 MG TABLET PO SCH (08:38)
[2019-07-30] MEDS: Fluticasone Propionate Nasal 50 MCG/SPRAY BOTTLE NS SCH ×2 (08:38→20:44)
[2019-07-30] MEDS: Artificial Tears SOLN 15 ML BOTTLE BOTH EYES SCH ×3 (08:38→20:44)
[2019-07-30] MEDS ORDERED: NON-FORMULARY MEDICATION 1 EACH EACH (Roflumilast [Daliresp] 500 MCG) PO SCH (09:00)
[2019-07-30] MEDS ORDERED: predniSONE 20 MG TABLET PO SCH (09:00)
[2019-07-30] MEDS ORDERED: Saliva Stimulant 100ml BOTTLE PO PRN (17:48)
[2019-07-31] MEDS: MethylPREDNISolone 40 MG/ML VIAL IVP SCH ×3 (00:22→16:55)
[2019-07-31] MEDS ORDERED: *HR* LORazepam 2 MG/ML VIAL IVP ONE (03:37)
[2019-07-31] MEDS: Ipratropium/Albuterol Neb 3 ML IH SCH ×5 (03:44→20:12)
[2019-07-31] MEDS: *HR* Heparin 5,000 UNIT/ML VIAL SQ SCH ×2 (06:03→16:55)
[2019-07-31 07:10] LABS: BUN/Creatinine Ratio 41 (6-26); Blood Urea Nitrogen 29 mg/dL (8-23); Calcium 8.2 mg/dL (8.6-10.3); Carbon Dioxide 32 mEq/L (23-29); Chloride 95 mEq/L (98-107); Glucose 127 mg/dL (70-105); Osmolality,Calculated 285 (280-300); Potassium 4.7 mEq/L (3.5-5.1); Sodium 134 mEq/L (136-145); eGFR For African Americans > 60 (> 60); eGFR For Non-African Americans > 60 (> 60)
[2019-07-31] MEDS: Budesonide/Formoterol 160/4.5 1 PUFF INH IH SCH ×2 (07:15→20:12)
[2019-07-31] MEDS: Thiamine (B-1) 100 MG TABLET PO SCH (08:30)
[2019-07-31] MEDS: amLODIPine 5 MG TABLET PO SCH (08:30)
[2019-07-31] MEDS: Magnesium Oxide 400 MG TABLET PO SCH ×2 (08:30→19:56)
[2019-07-31] MEDS: Artificial Tears SOLN 15 ML BOTTLE BOTH EYES SCH ×3 (08:46→19:56)
[2019-07-31] MEDS: Fluticasone Propionate Nasal 50 MCG/SPRAY BOTTLE NS SCH ×2 (08:46→19:56)
[2019-07-31 09:20] LABS: Hematocrit 35.3 % (37.5-50.1); Hemoglobin 11.9 g/dL (12.9-16.9); Mean Corpuscular HGB Conc 33.7 g/dL (31.6-35.5); Mean Corpuscular Hemoglobin 30.5 pg (28.0-33.3); Mean Corpuscular Volume 90.5 fL (83.0-100.0); Mean Platelet Volume 8.7 fL (9.4-12.4); Platelet Count 243 K/mcL (140-400); Red Cell Distribution Width 13.8 % (11.5-14.5); White Blood Count 12.3 K/mcL (4.3-11.1)
[2019-08-01] MEDS: MethylPREDNISolone 40 MG/ML VIAL IVP SCH ×3 (00:24→16:58)
[2019-08-01] MEDS: Ipratropium/Albuterol Neb 3 ML IH SCH ×6 (00:33→20:22)
[2019-08-01 02:06] LABS: Hematocrit 35.2 % (37.5-50.1); Hemoglobin 11.7 g/dL (12.9-16.9); Mean Corpuscular HGB Conc 33.2 g/dL (31.6-35.5); Mean Corpuscular Hemoglobin 30.3 pg (28.0-33.3); Mean Corpuscular Volume 91.2 fL (83.0-100.0); Mean Platelet Volume 8.6 fL (9.4-12.4); Platelet Count 224 K/mcL (140-400); Red Blood Count 3.86 M/mcL (4.19-5.50); Red Cell Distribution Width 13.7 % (11.5-14.5); White Blood Count 10.2 K/mcL (4.3-11.1)
[2019-08-01 02:21] LABS: BUN/Creatinine Ratio 40 (6-26); Blood Urea Nitrogen 25 mg/dL (8-23); Calcium 8.6 mg/dL (8.6-10.3); Carbon Dioxide 35 mEq/L (23-29); Chloride 95 mEq/L (98-107); Glucose 145 mg/dL (70-105); Osmolality,Calculated 285 (280-300); Potassium 4.9 mEq/L (3.5-5.1); Sodium 134 mEq/L (136-145); eGFR For African Americans > 60 (> 60); eGFR For Non-African Americans > 60 (> 60)
[2019-08-01] MEDS: *HR* Heparin 5,000 UNIT/ML VIAL SQ SCH ×2 (06:45→16:57)
[2019-08-01] MEDS: Budesonide/Formoterol 160/4.5 1 PUFF INH IH SCH ×2 (07:53→20:22)
[2019-08-01] MEDS: Thiamine (B-1) 100 MG TABLET PO SCH (08:51)
[2019-08-01] MEDS: Folic Acid 1 MG TABLET PO SCH (08:51)
[2019-08-01] MEDS: Magnesium Oxide 400 MG TABLET PO SCH ×2 (08:51→21:13)
[2019-08-01] MEDS: Artificial Tears SOLN 15 ML BOTTLE BOTH EYES SCH ×3 (08:52→21:14)
[2019-08-01] MEDS: amLODIPine 5 MG TABLET PO SCH (08:53)
[2019-08-01] MEDS: Fluticasone Propionate Nasal 50 MCG/SPRAY BOTTLE NS SCH ×2 (08:53→21:14)
[2019-08-02] MEDS: Ipratropium/Albuterol Neb 3 ML IH SCH ×5 (00:15→15:34)
[2019-08-02] MEDS: MethylPREDNISolone 40 MG/ML VIAL IVP SCH ×2 (00:30→09:31)
[2019-08-02 05:11] LABS: Hematocrit 36.9 % (37.5-50.1); Hemoglobin 11.4 g/dL (12.9-16.9); Mean Corpuscular HGB Conc 30.9 g/dL (31.6-35.5); Mean Corpuscular Hemoglobin 29.7 pg (28.0-33.3); Mean Corpuscular Volume 96.1 fL (83.0-100.0); Mean Platelet Volume 9.1 fL (9.4-12.4); Platelet Count 210 K/mcL (140-400); Red Blood Count 3.84 M/mcL (4.19-5.50); Red Cell Distribution Width 13.6 % (11.5-14.5); White Blood Count 8.8 K/mcL (4.3-11.1)
[2019-08-02 05:32] LABS: BUN/Creatinine Ratio 44 (6-26); Blood Urea Nitrogen 25 mg/dL (8-23); Carbon Dioxide 34 mEq/L (23-29); Chloride 98 mEq/L (98-107); Glucose 136 mg/dL (70-105); Osmolality,Calculated 288 (280-300); Potassium 4.8 mEq/L (3.5-5.1); Sodium 136 mEq/L (136-145); eGFR For African Americans > 60 (> 60); eGFR For Non-African Americans > 60 (> 60)
[2019-08-02] MEDS: *HR* Heparin 5,000 UNIT/ML VIAL SQ SCH (06:19)
[2019-08-02] MEDS: Budesonide/Formoterol 160/4.5 1 PUFF INH IH SCH (07:36)
[2019-08-02] MEDS: Magnesium Oxide 400 MG TABLET PO SCH (09:26)
[2019-08-02] MEDS: Thiamine (B-1) 100 MG TABLET PO SCH (09:26)
[2019-08-02] MEDS: amLODIPine 5 MG TABLET PO SCH (09:26)
[2019-08-02] MEDS: Artificial Tears SOLN 15 ML BOTTLE BOTH EYES SCH (09:27)
[2019-08-02] MEDS: Fluticasone Propionate Nasal 50 MCG/SPRAY BOTTLE NS SCH (09:27)
[2019-08-02 12:13] VITALS: BP 147/65
[2019-08-04] MEDS ORDERED: NON-FORMULARY MEDICATION 1 EACH EACH (Alendronate Sodium 70 MG) PO SCH (15:06)
== END 2019-08-02 16:45 | disposition other institution (70) | DRG 189 ==
LOC: EMEROOARM 11:27 → 3BNU 11:27
PROVIDERS: ADMIT Internal Medicine; ATTEND Internal Medicine